=== PATIENT | male | born 1955 | race Caucasian/White ===

== ENCOUNTER 2024-02-19 10:27 | Emergency (ER) | payer MEDICARE ==
[2024-02-19 11:10] LABS: HEMATOCRIT 40.3 % (38.4-49.7); HEMOGLOBIN 12.9 g/dL (12.9-16.9); MEAN CORPUSCULAR HEMOGLOBIN 31.9 pg (31.6-35.5); MEAN CORPUSCULAR VOLUME 99.8 fL (81.4-99.0); PLATELET COUNT,PLT 108 K/uL (130-375); RED BLOOD CELL COUNT 4.04 M/uL (4.14-5.76); WHITE BLOOD CELL COUNT,WBC 7.4 K/uL (3.2-11.0)
[2024-02-19 11:31] LABS: A/G RATIO 0.9 (1.2-2.2); ALANINE AMINOTRANSFERASE,ALT 31 U/L (12-78); ALBUMIN 2.6 g/dL (3.4-5.0); ALKALINE PHOSPHATASE 57 U/L (46-116); ASPARTATE AMNIOTRANSFERASE,AST 15 U/L (15-37); BILIRUBIN TOTAL 0.3 mg/dL (0.2-1.0); BLOOD UREA NITROGEN,BUN 29 mg/dL (7-18); CARBON DIOXIDE,CO2 43 mmol/L (21-32); CHLORIDE,CL 102 mmol/L (100-108); CREATININE 0.8 mg/dL (0.8-1.3); EST CRCL DRUG DOSING (CG) 87.15 mL/min; ESTIMATED GFR 96 mL/min (>60); GLUCOSE RANDOM 125 mg/dL (74-106); POTASSIUM,K 4.5 mmol/L (3.6-5.2); PROTEIN TOTAL,TP 5.6 g/dL (6.4-8.2); SODIUM,NA 145 mmol/L (140-148)
[2024-02-19 11:33] LABS: ANION GAP 4.5 mmol/L (5.0-14.0)
[2024-02-19 11:42] LABS: APPEARANCE,URINE CLEAR (CLEAR); BILIRUBIN,URINE NEGATIVE (NEGATIVE); COLOR,URINE YELLOW (YELLOW); GLUCOSE,URINE NEGATIVE (NEGATIVE); KETONES,URINE NEGATIVE (NEGATIVE); LEUKOCYTE ESTERASE,URINE NEGATIVE (NEGATIVE); NITRITE,URINE NEGATIVE (NEGATIVE); OCCULT BLOOD,URINE NEGATIVE (NEGATIVE); PH,URINE 5.5 (5.0-8.0); PROTEIN,URINE NEGATIVE (NEGATIVE); UROBILINOGEN,URINE 0.2 EU/dL (0.2-1.0)
[2024-02-19 11:44] LABS: ATYPICAL LYMPHOCYTES MODERATE; EOSINOPHILS ABSOLUTE MAN 0.37 K/uL (0.00-0.40); EOSINOPHILS PERCENT MAN 5 % (2-4); LYMPHOCYTES ABSOLUTE MAN 1.11 K/uL (0.8-3.3); LYMPHOCYTES PERCENT MAN 15 % (24-44); MONOCYTES ABSOLUTE MAN 0.44 K/uL (0.20-0.90); MONOCYTES PERCENT MAN 6 % (2-6); NEUTROPHILS ABSOLUTE MAN 5.48 K/uL (1.0-7.6); SEG NEUTROPHILS PERCENT MAN 74 % (36-66)
[2024-02-19 11:47] LABS: AMORPHOUS SEDIMENT,URINE NOT SEEN; BACTERIA,URINE NOT SEEN; EPITHELIAL CELLS,URINE NOT SEEN; MUCUS,URINE NOT SEEN; RBC,URINE 0-5 (0-5); WBC,URINE 0-5 (0-5)
[2024-02-19 13:02] LABS: BICARBONATE,ARTERIAL 40.1 mmol/L (22.0-26.0); CARBOXYHEMOGLOBIN 1.7 % (0.0-1.6); METHEMOGLOBIN 0.8 %; O2 SATURATION ARTERIAL 93.4 % (95.0-98.0); OXYHEMOGLOBIN 91.1 %; PO2 ARTERIAL 67.4 mmHg (75.0-100.0)
[2024-02-19 13:04] LABS: PCO2 ARTERIAL 71.9 mmHg (35.0-42.0)
== END 2024-02-19 15:40 | disposition home or self-care (01) ==
LOC: JP.ED 10:27 → EDSEX 10:27 → JP.ED 15:40
DX: J18.9 Pneumonia, unspecified organism (principal); J44.9 Chronic obstructive pulmonary disease, unspecified; L27.0 Generalized skin eruption due to drugs and medicaments taken internally; T36.4X5A Adverse effect of tetracyclines, initial encounter; I10 Essential (primary) hypertension; I25.10 Atherosclerotic heart disease of native coronary artery without angina pectoris; E66.9 Obesity, unspecified; Z86.16 Personal history of COVID-19; Z79.2 Long term (current) use of antibiotics; Z79.82 Long term (current) use of aspirin; Z79.51 Long term (current) use of inhaled steroids; Z79.899 Other long term (current) drug therapy; Z88.0 Allergy status to penicillin; Z68.23 Body mass index [BMI] 23.0-23.9, adult
CPT/HCPCS: 36415; 36600; 71046; 71046-26; 80053; 81001; 82803; 85025; 85610; 85730; 99284; 99285

== ENCOUNTER 2024-07-02 07:37 | Observation (INO) | payer MEDICAID, MEDICARE ==
[2024-07-02 08:09] LABS: BASOPHILS ABSOLUTE AUTO 0.05 K/uL (0.00-0.10); BASOPHILS PERCENT AUTO 0.7 % (0.1-1.3); EOSINOPHILS ABSOLUTE AUTO 0.33 K/uL (0.00-0.40); EOSINOPHILS PERCENT AUTO 4.4 % (0.0-5.4); HEMATOCRIT 40.2 % (38.4-49.7); HEMOGLOBIN 13.6 g/dL (12.9-16.9); IMMATURE GRAN PERCENT AUTO 0.3 % (0.0-0.7); LYMPHOCYTES ABSOLUTE AUTO 1.41 K/uL (0.8-3.3); LYMPHOCYTES PERCENT AUTO 18.8 % (11.4-47.7); MEAN CORPUSCULAR HEMOGLOBIN 31.9 pg (31.6-35.5); MEAN CORPUSCULAR HGB CONC 33.8 g/dL (31.6-35.5); MEAN CORPUSCULAR VOLUME 94.4 fL (81.4-99.0); MONOCYTES ABSOLUTE AUTO 0.95 K/uL (0.20-0.90); MONOCYTES PERCENT AUTO 12.6 % (3.3-12.6); NEUTROPHILS ABSOLUTE AUTO 4.76 K/uL (1.0-7.6); NEUTROPHILS PERCENT AUTO 63.2 % (40.0-78.1); PLATELET COUNT,PLT 115 K/uL (130-375); RED BLOOD CELL COUNT 4.26 M/uL (4.14-5.76); WHITE BLOOD CELL COUNT,WBC 7.5 K/uL (3.2-11.0)
[2024-07-02 08:10] LABS: IMMATURE GRAN ABSOLUTE AUTO 0.02 K/uL (0.00-0.23)
[2024-07-02 08:33] LABS: CALCIUM 9.9 mg/dL (8.5-10.1); CREATININE 1.1 mg/dL (0.8-1.3); EST CRCL DRUG DOSING (CG) 60.45 mL/min; TROPONIN I HIGH SENSITIVITY 8.7 pg/mL (<=60.3)
[2024-07-02 08:46] LABS: ANION GAP -6.5 mmol/L (5.0-14.0)
[2024-07-02 08:47] LABS: POTASSIUM,K 2.5 mmol/L (3.6-5.2)
[2024-07-02] MEDS ORDERED: Sodium Chloride 0.9% 10 ML SDV IV SCH (09:15)
[2024-07-02] MEDS: Potassium Chloride 20 MEQ in Premix Bag 1 BAG IV ONE (09:18)
[2024-07-02] MEDS: Sodium Chloride 0.9% 500 ML IV SCH (09:19)
[2024-07-02] MEDS: Potassium Chloride 20 MEQ Tab.ER PO ONE ×3 (09:19→21:04)
[2024-07-02] MEDS: Sodium Chloride 0.9% 10 ML Syringe FLUSH PRN (09:21)
[2024-07-02] MEDS ORDERED: Albuterol 6.7 GM Inhaler INH PRN (13:11)
[2024-07-02] MEDS ORDERED: Polyethylene Glycol 3350 Powder 17 GM Packet PO PRN (13:11)
[2024-07-02] MEDS ORDERED: Ondansetron 4 MG/2 ML SDV IV PRN (13:11)
[2024-07-02] MEDS ORDERED: Sodium Chloride 0.9% 10 ML Syringe FLUSH PRN (13:11)
[2024-07-02] MEDS ORDERED: Albuterol/Ipratropium 3.0-0.5 MG/3 ML Neb Soln NEB PRN (13:11)
[2024-07-02] MEDS ORDERED: Acetaminophen 325 MG Tab PO PRN (13:11)
[2024-07-02] MEDS ORDERED: Nystatin Susp 100,000 Unit/ML 60 ML Bottle PO SCH (14:00)
[2024-07-02] MEDS: Iopamidol 612 MG/ML 100 ML Bottle IV SCH (14:11)
[2024-07-02] MEDS: Sodium Chloride 0.9% 80 ML IV SCH (14:11)
[2024-07-02] MEDS: Nicotine 14 MG/24 Hr Patch TRDERM SCH (15:21)
[2024-07-02] MEDS: Gabapentin 300 MG Cap PO SCH ×2 (15:22→21:04)
[2024-07-02] MEDS: Enoxaparin 40 MG/0.4 ML Syringe SUBCUT SCH (15:23)
[2024-07-02] MEDS: Furosemide 40 MG Tab PO SCH (15:23)
[2024-07-02] MEDS: Diltiazem 120 MG Cap.CD PO SCH (15:24)
[2024-07-02 17:19] LABS: MAGNESIUM 2.2 mg/dL (1.8-2.4); POTASSIUM,K 3.6 mmol/L (3.6-5.2)
[2024-07-02] MEDS ORDERED: FLUTICASONE PROPIONATE INH SCH (21:00)
[2024-07-02] MEDS ORDERED: Non-Formulary Medication 1 Each (Buprenorphine Hcl/Naloxone Hcl [Buprenorphine-Nalox 12-3m SL SCH (21:00)
[2024-07-02] MEDS: Rosuvastatin 10 MG Tab PO SCH (21:03)
[2024-07-02] MEDS: Buprenorphine/Naloxone 1 TAB, Buprenorphine/Naloxone 2 TAB SL SCH (21:04)
[2024-07-03 06:36] LABS: CALCIUM 9.7 mg/dL (8.5-10.1); CREATININE 1.1 mg/dL (0.8-1.3); EST CRCL DRUG DOSING (CG) 60.45 mL/min; POTASSIUM,K 3.3 mmol/L (3.6-5.2)
[2024-07-03 06:50] LABS: ANION GAP 3.3 mmol/L (5.0-14.0)
[2024-07-03] MEDS: Formoterol/Mometasone 200-5 MCG 8.8 GM Inhaler IH SCH (07:43)
[2024-07-03] MEDS: Tiotropium Bromide 4 GM Inhalation Spray (2.5mcg/1 dose; 10 doses) INH SCH (07:44)
[2024-07-03] MEDS: Isosorbide Mononitrate 30 MG Tab.ER PO SCH (08:12)
[2024-07-03] MEDS: Aspirin 81 MG Tab.EC PO SCH (08:13)
[2024-07-03] MEDS: predniSONE 5 MG Tab PO SCH (08:13)
[2024-07-03] MEDS: Potassium Chloride 20 MEQ Tab.ER PO ONE (08:16)
[2024-07-03] MEDS ORDERED: Famotidine 20 MG Tab PO SCH (09:00)
[2024-07-03] MEDS: oxyCODONE 5 MG Tab PO ONE (11:29)
== END 2024-07-03 13:30 | disposition home or self-care (01) ==
LOC: JP.ED 07:37 → JP.MS 11:48 → INTOOBSV 11:48
PROVIDERS: ADMIT Nurse Practitioner; ATTEND Nurse Practitioner
DX: E87.6 Hypokalemia (principal); J44.9 Chronic obstructive pulmonary disease, unspecified; I10 Essential (primary) hypertension; I25.10 Atherosclerotic heart disease of native coronary artery without angina pectoris; F32.A Depression, unspecified; F03.90 Unspecified dementia, unspecified severity, without behavioral disturbance, psychotic disturbance, mood disturbance, and anxiety; Z87.891 Personal history of nicotine dependence; Z79.899 Other long term (current) drug therapy; Z88.0 Allergy status to penicillin
CPT/HCPCS: 36415; 71045; 71260; 80048; 83605; 83735; 84132; 84484; 85025; 94640; 96365; 96366; 99221; 99238; 99285; A9270; J0574; J1650; J3480; J7512; Q9967; 96372; G0378

== ENCOUNTER 2024-08-30 14:00 | Emergency (ER) | payer MEDICAID, MEDICARE ==
[2024-08-30] MEDS ORDERED: Sodium Chloride 0.9% 10 ML Syringe FLUSH PRN (15:12)
[2024-08-30 15:28] LABS: BASOPHILS ABSOLUTE AUTO 0.04 K/uL (0.00-0.10); BASOPHILS PERCENT AUTO 0.4 % (0.1-1.3); EOSINOPHILS ABSOLUTE AUTO 0.22 K/uL (0.00-0.40); EOSINOPHILS PERCENT AUTO 2.4 % (0.0-5.4); HEMATOCRIT 44.8 % (38.4-49.7); HEMOGLOBIN 15.2 g/dL (12.9-16.9); IMMATURE GRAN ABSOLUTE AUTO 0.04 K/uL (0.00-0.23); IMMATURE GRAN PERCENT AUTO 0.4 % (0.0-0.7); LYMPHOCYTES ABSOLUTE AUTO 1.12 K/uL (0.8-3.3); LYMPHOCYTES PERCENT AUTO 12.1 % (11.4-47.7); MEAN CORPUSCULAR HEMOGLOBIN 32.8 pg (31.6-35.5); MEAN CORPUSCULAR HGB CONC 33.9 g/dL (31.6-35.5); MEAN CORPUSCULAR VOLUME 96.6 fL (81.4-99.0); MONOCYTES ABSOLUTE AUTO 0.87 K/uL (0.20-0.90); MONOCYTES PERCENT AUTO 9.4 % (3.3-12.6); NEUTROPHILS ABSOLUTE AUTO 6.98 K/uL (1.0-7.6); NEUTROPHILS PERCENT AUTO 75.3 % (40.0-78.1); PLATELET COUNT,PLT 150 K/uL (130-375); RED BLOOD CELL COUNT 4.64 M/uL (4.14-5.76); WHITE BLOOD CELL COUNT,WBC 9.3 K/uL (3.2-11.0)
[2024-08-30] MEDS: HYDROmorphone 1 MG/ML Syringe IM ONE (15:29)
[2024-08-30] MEDS: Sodium Chloride 0.9% 1,000 ML IV ONE (15:29)
[2024-08-30 15:43] LABS: CALCIUM 9.6 mg/dL (8.5-10.1); CREATININE 1.2 mg/dL (0.8-1.3); EST CRCL DRUG DOSING (CG) 53.55 mL/min; POTASSIUM,K 3.9 mmol/L (3.6-5.2)
[2024-08-30 15:48] LABS: ANION GAP 8.9 mmol/L (5.0-14.0)
[2024-08-30] MEDS: Buprenorphine/Naloxone 8-2 MG Tab.SL SL ONE (22:01)
[2024-08-31] MEDS: LORazepam 1 MG Tab PO ONE (01:00)
[2024-08-31] MEDS: Buprenorphine/Naloxone 8-2 MG Tab.SL SL ONE (06:23)
== END 2024-08-31 06:35 | disposition home or self-care (01) ==
LOC: JP.ED 14:00
DX: F11.23 Opioid dependence with withdrawal (principal); I10 Essential (primary) hypertension; I25.10 Atherosclerotic heart disease of native coronary artery without angina pectoris; Z88.0 Allergy status to penicillin; Z79.82 Long term (current) use of aspirin; Z79.899 Other long term (current) drug therapy; Z86.16 Personal history of COVID-19
CPT/HCPCS: 36415; 71046; 80048; 85025; 96360; 96372; 99284; 99285; A9270; J0574; J1171; J7030

== ENCOUNTER 2024-10-24 17:27 | Emergency (ER) | payer MEDICARE | END 2024-10-24 21:17 | disposition home or self-care (01) | LOC: JP.ED 17:27 | DX: S20.211A Contusion of right front wall of thorax, initial encounter (principal); I10 Essential (primary) hypertension; I25.10 Atherosclerotic heart disease of native coronary artery without angina pectoris; J44.9 Chronic obstructive pulmonary disease, unspecified; Z86.16 Personal history of COVID-19; Z88.0 Allergy status to penicillin; Z88.8 Allergy status to other drugs, medicaments and biological substances; Z79.82 Long term (current) use of aspirin; Z79.899 Other long term (current) drug therapy; W07.XXXA Fall from chair, initial encounter; Y93.89 Activity, other specified | CPT/HCPCS: 71046; 99283; A9270 ==

== ENCOUNTER 2024-11-03 03:40 | Inpatient (IN) | payer MEDICARE ==
[2024-11-03 04:01] LABS: BASOPHILS ABSOLUTE AUTO 0.04 K/uL (0.00-0.10); BASOPHILS PERCENT AUTO 0.4 % (0.1-1.3); EOSINOPHILS ABSOLUTE AUTO 0.10 K/uL (0.00-0.40); EOSINOPHILS PERCENT AUTO 1.0 % (0.0-5.4); IMMATURE GRAN ABSOLUTE AUTO 0.04 K/uL (0.00-0.23); IMMATURE GRAN PERCENT AUTO 0.4 % (0.0-0.7); LYMPHOCYTES ABSOLUTE AUTO 0.68 K/uL (0.8-3.3); LYMPHOCYTES PERCENT AUTO 6.6 % (11.4-47.7); MONOCYTES ABSOLUTE AUTO 1.26 K/uL (0.20-0.90); MONOCYTES PERCENT AUTO 12.2 % (3.3-12.6); NEUTROPHILS ABSOLUTE AUTO 8.22 K/uL (1.0-7.6); NEUTROPHILS PERCENT AUTO 79.4 % (40.0-78.1); PLATELET COUNT,PLT 162 K/uL (130-375); RED BLOOD CELL COUNT 4.31 M/uL (4.14-5.76); WHITE BLOOD CELL COUNT,WBC 10.3 K/uL (3.2-11.0)
[2024-11-03 04:02] LABS: LACTIC ACID 0.7 mmol/L (0.4-2.0)
[2024-11-03 04:04] LABS: BASE EXCESS ARTERIAL 17.3 mm/L; BICARBONATE,ARTERIAL 46.4 mmol/L (22.0-26.0); O2 SATURATION ARTERIAL 93.1 % (95.0-98.0); OXYHEMOGLOBIN 89.8 %; PO2 ARTERIAL 66.5 mmHg (75.0-100.0); TOTAL HEMOGLOBIN 14.3 g/dL (13.5-18.0)
[2024-11-03 04:06] LABS: PCO2 ARTERIAL 75.6 mmHg (35.0-42.0)
[2024-11-03 04:22] LABS: A/G RATIO 0.9 (1.2-2.2); ALANINE AMINOTRANSFERASE,ALT 30 U/L (12-78); ASPARTATE AMNIOTRANSFERASE,AST 32 U/L (15-37); BILIRUBIN TOTAL 0.7 mg/dL (0.2-1.0); BLOOD UREA NITROGEN,BUN 47 mg/dL (7-18); CHLORIDE,CL 96 mmol/L (100-108); CREATININE 1.2 mg/dL (0.8-1.3); ESTIMATED GFR 65 mL/min (>60); GLUCOSE RANDOM 148 mg/dL (74-106); POTASSIUM,K 3.5 mmol/L (3.6-5.2); PROTEIN TOTAL,TP 7.1 g/dL (6.4-8.2); SODIUM,NA 143 mmol/L (140-148)
[2024-11-03 04:29] LABS: CARBON DIOXIDE,CO2 54 mmol/L (21-32)
[2024-11-03] MEDS: Iopamidol 612 MG/ML 100 ML Bottle IV SCH (04:49)
[2024-11-03] MEDS: Sodium Chloride 0.9% 10 ML Syringe FLUSH PRN (04:50)
[2024-11-03] MEDS ORDERED: Naloxone 0.4 MG/ML SDV IVPUSH PRN (05:46)
[2024-11-03 06:05] LABS: GLUCOSE,URINE NEGATIVE (NEGATIVE); OCCULT BLOOD,URINE TRACE-LYSED (NEGATIVE)
[2024-11-03 06:12] LABS: AMPHETAMINES SCREEN, URINE NEGATIVE (NEGATIVE); APPEARANCE,URINE SLIGHTLY CLOUDY (CLEAR); EPITHELIAL CELLS,URINE NOT SEEN; METHADONE SCREEN, URINE NEGATIVE (NEGATIVE); METHAMPHETAMINES SCREEN, URINE NEGATIVE (NEGATIVE); OXYCODONE SCREEN,URINE NEGATIVE (NEGATIVE); PROPOXYPHENE SCREEN,URINE NEGATIVE (NEGATIVE); THC SCREEN,URINE 50 NG/ML NEGATIVE (NEGATIVE)
[2024-11-03] MEDS: methylPREDNISolone Sodium Succinate 125 MG/2 ML SDV IVPUSH ONE (09:16)
[2024-11-03 12:20] LABS: BASE EXCESS ARTERIAL 18.2 mm/L; BICARBONATE,ARTERIAL 48.7 mmol/L (22.0-26.0); O2 SATURATION ARTERIAL 92.4 % (95.0-98.0); OXYHEMOGLOBIN 90.1 %; PO2 ARTERIAL 66.2 mmHg (75.0-100.0); TOTAL HEMOGLOBIN 13.4 g/dL (13.5-18.0)
[2024-11-03 12:22] LABS: PCO2 ARTERIAL 92.3 mmHg (35.0-42.0)
[2024-11-03] MEDS ORDERED: Ondansetron 4 MG/2 ML SDV IV PRN (13:41)
[2024-11-03] MEDS ORDERED: Sodium Chloride 0.9% 10 ML Syringe FLUSH PRN (13:41)
[2024-11-03] MEDS ORDERED: Albuterol 0.083% 2.5 MG/3 ML Neb Soln NEB PRN (13:41)
[2024-11-03] MEDS: metroNIDAZOLE/Normal Saline 500 MG in Premix Bag 1 BAG IV SCH (15:03)
[2024-11-03] MEDS: Levofloxacin/Dextrose 5%-Water 750 MG in Premix Bag 1 BAG IV SCH (15:07)
[2024-11-03] MEDS: Potassium Chloride 20 MEQ Tab.ER PO SCH (16:23)
[2024-11-03] MEDS: Furosemide 40 MG/4 ML VIAL IVPUSH ONE (16:38)
[2024-11-03] MEDS ORDERED: Non-Formulary Medication 1 Each (Buprenorphine Hcl/Naloxone Hcl [Buprenorphine-Nalox 8-2mg SL SCH (21:00)
[2024-11-03] MEDS ORDERED: Non-Formulary Medication 1 Each (Rosuvastatin Calcium [Rosuvastatin Calcium] 20 MG Tablet) PO SCH (21:00)
[2024-11-03] MEDS ORDERED: RISPERIDONE 0.25 MG PO SCH (21:00)
[2024-11-03] MEDS ORDERED: Non-Formulary Medication 1 Each (Propranolol [Inderal] 10 MG Tablet) PO SCH (21:00)
[2024-11-03] MEDS ORDERED: Non-Formulary Medication 1 Each (Melatonin [Melatonin] 3 MG Capsule) PO SCH (21:00)
[2024-11-03] MEDS: Buprenorphine/Naloxone 8-2 MG Tab.SL SL SCH (21:04)
[2024-11-04 06:11] LABS: PLATELET COUNT,PLT 135.0 K/uL (130-375); RED BLOOD CELL COUNT 3.88 M/uL (4.14-5.76); WHITE BLOOD CELL COUNT,WBC 8.1 K/uL (3.2-11.0)
[2024-11-04 06:27] LABS: BASE EXCESS ARTERIAL 19.0 mm/L; BICARBONATE,ARTERIAL 46.3 mmol/L (22.0-26.0); O2 SATURATION ARTERIAL 89.5 % (95.0-98.0); OXYHEMOGLOBIN 87.1 %; PCO2 ARTERIAL 62.7 mmHg (35.0-42.0); PO2 ARTERIAL 53.4 mmHg (75.0-100.0); TOTAL HEMOGLOBIN 13.0 g/dL (13.5-18.0)
[2024-11-04 06:38] LABS: A/G RATIO 0.8 (1.2-2.2); ALANINE AMINOTRANSFERASE,ALT 26 U/L (12-78); ASPARTATE AMNIOTRANSFERASE,AST 31 U/L (15-37); BILIRUBIN TOTAL 0.5 mg/dL (0.2-1.0); BLOOD UREA NITROGEN,BUN 34 mg/dL (7-18); CHLORIDE,CL 96 mmol/L (100-108); CREATININE 1.2 mg/dL (0.8-1.3); EST CRCL DRUG DOSING (CG) 55.42 mL/min; ESTIMATED GFR 65 mL/min (>60); GLUCOSE RANDOM 117 mg/dL (74-106); POTASSIUM,K 3.3 mmol/L (3.6-5.2); PROTEIN TOTAL,TP 6.2 g/dL (6.4-8.2); SODIUM,NA 145 mmol/L (140-148)
[2024-11-04 06:51] LABS: CARBON DIOXIDE,CO2 48 mmol/L (21-32)
[2024-11-04] MEDS: Diltiazem 120 MG Cap.CD PO SCH (08:08)
[2024-11-04] MEDS: Potassium Chloride 20 MEQ Tab.ER PO ONE ×2 (08:10→12:25)
[2024-11-04] MEDS ORDERED: Non-Formulary Medication 1 Each (Duloxetine [Cymbalta] 60 MG Cap) PO SCH (09:00)
[2024-11-04] MEDS: Formoterol/Mometasone 200-5 MCG 8.8 GM Inhaler IH SCH (13:26)
[2024-11-04] MEDS: Tiotropium Bromide 4 GM Inhalation Spray (2.5mcg/1 dose; 10 doses) INH SCH (13:27)
[2024-11-05] MEDS: LORazepam ORAL Concentrate 1MG/0.5ML U/D SL PRN (19:08)
== END 2024-11-07 10:00 | disposition hospice, home (50) | DRG 189 ==
LOC: JP.ED 03:40 → EEVIPCON 12:16 → JP.ICU 12:16
PROVIDERS: ADMIT Hospitalist; ATTEND Hospitalist
PROC: 4A133R1 Monitoring of Arterial Saturation, Peripheral, Percutaneous Approach (ICD-10-PCS; principal; 2024-11-03)
PROC: 5A09357 Assistance with Respiratory Ventilation, Less than 24 Consecutive Hours, Continuous Positive Airway Pressure (ICD-10-PCS; 2024-11-03)
DX: J96.21 Acute and chronic respiratory failure with hypoxia (principal); J44.1 Chronic obstructive pulmonary disease with (acute) exacerbation; F03.93 Unspecified dementia, unspecified severity, with mood disturbance; F03.94 Unspecified dementia, unspecified severity, with anxiety; J96.22 Acute and chronic respiratory failure with hypercapnia; Z51.5 Encounter for palliative care; Z66 Do not resuscitate; I25.10 Atherosclerotic heart disease of native coronary artery without angina pectoris; I10 Essential (primary) hypertension; G62.9 Polyneuropathy, unspecified; E66.9 Obesity, unspecified; R11.2 Nausea with vomiting, unspecified; R10.84 Generalized abdominal pain; A49.9 Bacterial infection, unspecified; Z88.0 Allergy status to penicillin; Z88.8 Allergy status to other drugs, medicaments and biological substances; Z79.82 Long term (current) use of aspirin; Z79.52 Long term (current) use of systemic steroids; Z79.899 Other long term (current) drug therapy; Z79.51 Long term (current) use of inhaled steroids; Z87.19 Personal history of other diseases of the digestive system; Z68.29 Body mass index [BMI] 29.0-29.9, adult; Z86.16 Personal history of COVID-19; Z99.81 Dependence on supplemental oxygen
CPT/HCPCS: 36415; 36600 ×2; 70450; 71260; 72125; 74177; 76377; 76705; 80053; 80305; 81001; 82803 ×2; 83605; 83690; 85025; 86140; 93010; 96361; 96374; 99285 ×2; J2919; J7030; Q9967; 83735; 85027; 94640; 94660; 99223; 99232; 99233; 99238; A9270-GY; J0574-GY; J1650; J1836; J1938; J1956; J2270; J3480; J7512